=== PATIENT | male | born 1980 | race African-American/Black ===

== ENCOUNTER 2018-11-06 13:32 | Emergency (ER) | payer MEDICARE, MEDICAID ==
[2018-11-06] MEDS ORDERED: Ketorolac Tromethamine 30 MG/ML VIAL ONE (13:58)
--- NOTE | 2018-11-06 16:08 | RAD ---
RADIOGRAPH RIGHT FEMUR 2 VIEWS: 11/06/18 HISTORY: 38-year-old male with nontraumatic right medial thigh pain for two weeks. FINDINGS: There is an enthesophyte at the lesser trochanter. No other femoral osseous abnormality is visualized . No periostitis, permeative lesion, osteolytic lesion, osteoblastic lesion, or fracture. Femoral hea d contour is maintained. Mild bony hypertrophy at the lateral aspect of the acetabular roof. IMPRESSION: 1. Mild osteoarthrosis of right hip. 2. Enthesophyte at lesser trochanter. 3. Otherwise negative. POS: [facility]
== END 2018-11-06 14:31 | disposition home or self-care (01) ==
LOC: SCSER 13:32
DX: M79.651 Pain in right thigh (principal)
CPT/HCPCS: 96372; J1885